=== PATIENT | female | born 1950 | race Caucasian/White ===

== ENCOUNTER 2022-04-20 16:05 | Emergency (ER) | payer OTHER ==
[2022-04-20 17:11] LABS: BILIRUBIN NEGATIVE (NEGATIVE); BLOOD TRACE-INTACT Ery/uL (NEGATIVE); COLOR YELLOW (YELLOW); GLUCOSE (U) TRACE mg/dL (NORMAL); LEUKOCYTES 2+ Leu/uL (NEGATIVE); NITRITE POSITIVE (NEGATIVE); PROTEIN 1+ mg/dL (NEGATIVE)
[2022-04-20 17:25] LABS: BACTERIA 1+
[2022-04-20 17:26] LABS: CLARITY HAZY (CLEAR)
[2022-04-20 18:18] LABS: BASOPHIL 0.6 % (0-2); EOSINOPHIL 1.7 % (0-7); HCT 39.6 % (37.0-47.0); LYMPHOCYTE 26.7 % (15-48); MCH 29.1 pg (25.0-31.0); MCHC 32.8 g/dL (32.0-36.0); MCV 88.6 fL (78.0-100.0); MONOCYTE 8.1 % (0-12); MPV 9.7 fL (6.0-9.5); NEUTROPHIL 62.5 % (41-80); NRBC 0; PLT 216 K/uL (150-400); RBC 4.47 M/uL (4.20-5.40); RDW 12.1 % (11.5-14.0); WBC 5.3 K/uL (4.0-10.5)
[2022-04-20 18:36] LABS: ALBUMIN 3.4 g/dL (3.4-5.0); BILIRUBIN - TOTAL 0.3 mg/dL (0.2-1.0); CREATININE 0.8 mg/dL (0.51-0.95); GLOBULIN (CALCULATION) 3.6 g/dL; POTASSIUM 3.6 mmol/L (3.5-5.1)
[2022-04-20] MEDS ORDERED: AMOX TR-K CLV1 EAC4 PO (19:07)
== END 2022-04-20 19:26 | disposition home or self-care (01) ==
LOC: FER 16:05
PROVIDERS: Emergency Medicine
DX: N39.0 Urinary tract infection, site not specified (principal); I10 Essential (primary) hypertension; Z88.2 Allergy status to sulfonamides; Z88.5 Allergy status to narcotic agent
CPT/HCPCS: 36415; 80053; 81001; 85025; 87088; 99283; J0696